=== PATIENT | female | born 1950 ===

== ENCOUNTER 2016-10-08 10:04 | Emergency (ER) | payer OTHER ==
--- NOTE | 2016-10-08 11:44 | UC ---
Laceration HPI - HPI Summary HPI Summary: Cut small flap lac on R thumb earlier this morning while at work. Is on blood thinners, had lots of bleeding that is now under control. Thinks tetanus is UTD. - History Of Current Complaint Chief Complaint: UCLaceration Stated Complaint: THUMB LAC Time Seen by Provider: 10/08/16 11:29 Hx Obtained From: Patient Laceration Location: Finger Mechanism Of Injury: Sharp Trauma Severity: Mild - Allergies/Home Medications Allergies/Adverse Reactions: Allergies Allergy/AdvReac Type Severity Reaction Status Date / Time No Known Allergies Allergy Verified 10/08/16 10:28 Home Medications: Home Medications Alpha-Lipoic Acid (Thioctic AC [Alpha Lipoic Acid] 600 mg PO 10/08/16 [History] Amlodipine Besylate [Norvasc 5 mg tab] 5 mg PO DAILY 10/08/16 [History Confirmed 10/08/16] Aspirin [Aspirin Childrens 81 MG] 81 mg PO 10/08/16 [History] Black Cohosh (Cimicifuga Racem [Black Cohosh] 540 mg PO 10/08/16 [History] Clopidogrel Bisulfate [Plavix] 75 mg PO 10/08/16 [History] Evening [place] Oil [Evening [place] Oil 500 mg] 500 mg PO 10/08/16 [History] Insulin Glargine [Lantus] 35 unit SC BEDTIME 10/08/16 [History Confirmed ] Metformin HCl [Glucophage] 1,000 mg PO BID 10/08/16 [History Confirmed 10/08/16] Simvastatin TAB(NF) [Zocor(NF)] 20 mg PO 1700 10/08/16 [History Confirmed ] celeCOXIB CAP* [CeleBREX CAP*] 200 mg PO DAILY 10/08/16 [History Confirmed 10/08] l-Methylfolate W/ Vitamin B6-V [Foltanx] 1 tab PO 10/08/16 [History] PMH/Surg Hx/FS Hx/Imm Hx Endocrine History Of: Reports: Diabetes - type 2 Cardiovascular History Of: Reports: Hypertension - Surgical History Surgical History: Yes Surgery Procedure, Year, and Place: stent to lt upper leg, catpract bilat, tubal ligation, T&A - Family History Known Family History: Positive: Diabetes - Social History Occupation: Employed Full-time Alcohol Use: Occasionally Substance Use Type: None Smoking Status (MU): Light Every Day Tobacco Smoker Type: Cigarettes Review of Systems Constitutional: Negative Skin: Other - R thumb lac Eyes: Negative ENT: Negative Respiratory: Negative Cardiovascular: Negative Gastrointestinal: Negative Genitourinary: Negative Motor: Negative Neurovascular: Negative Musculoskeletal: Negative Neurological: Negative Psychological: Negative All Other Systems Reviewed And Are Negative: Yes Physical Exam Triage Information Reviewed: Yes Appearance: Well-Appearing, No Pain Distress, Obese Vital Signs: Initial Vital Signs Temp 97.7 F 10/08/16 10:23 Pulse 87 10/08/16 10:23 Resp 18 10/08/16 10:23 BP 154/61 10/08/16 10:23 Pulse Ox 98 10/08/16 10:23 Vital Signs Reviewed: Yes Eye Exam: Normal Eyes: Positive: Conjunctiva Clear ENT Exam: Normal ENT: Positive: Normal ENT inspection, Hearing grossly normal, Pharynx normal, TMs normal Dental Exam: Normal Neck exam: Normal Neck: Positive: Supple, Nontender, No Lymphadenopathy Respiratory Exam: Normal Respiratory: Positive: Chest non-tender, Lungs clear, Normal breath sounds, No respiratory distress, No accessory muscle use Cardiovascular Exam: Normal Cardiovascular: Positive: RRR, No Murmur Musculoskeletal Exam: Normal Neurological Exam: Normal Neurological: Positive: Alert Psychological Exam: Normal Skin Exam: Other - R thumb flap lac approx 0.25cm x 0.5cm Laceration Repair - Laceration Repair 1 Description: Stellate Laceration Size After Repair: Length (cm) - 0.5, Width (mm) - 0, Depth (mm) - 0 Modified For Repair: No Irrigation With Pressure Irrigation Device: Yes Closure Material: Skin Adhesive, SteriStrips Closure Method: Single Layer Laceration Course/Dx - Differential Dx - Laceration/Wound Provider Diagnoses: R thumb pad partial skin avulsion, glue and steristrips Discharge - Discharge Plan Condition: Stable Disposition: HOME Patient Education Materials: Skin Adhesive Care (ED) Forms: *Work Release Referrals: Myah Vines RN [Primary Care Provider] - Additional Instructions: Try to keep the area clean and dry through this . After that you can allow the steristrip to wear off.
== END 2016-10-08 12:07 | disposition home or self-care (01) ==
LOC: UCEAST 10:04
DX: S61.011A Laceration without foreign body of right thumb without damage to nail, initial encounter (principal); W26.9XXA Contact with unspecified sharp object(s), initial encounter; Y93.9 Activity, unspecified; Y99.0 Civilian activity done for income or pay; Z79.01 Long term (current) use of anticoagulants; F17.210 Nicotine dependence, cigarettes, uncomplicated
CPT/HCPCS: 12001; 99202; G0463